=== PATIENT | male | born 1950 | race Caucasian/White ===

== ENCOUNTER 2017-06-22 21:14 | Emergency (ER) | payer OTHER, MEDICARE ==
[2017-06-22] VITALS (9 sets, daily range): BP systolic 90–151; BP diastolic 51–72
[~2017-06-22] VITALS: Ht 182.9 cm; Wt 81.6 kg
[~2017-06-22 21:14] MED LIST: AMOX1TAB63 PO; DILT120C PO; FURO20TA3 PO; GABA600T2 PO; LEVO500T51 PO; MORP30TA PO; PANT40TA5 PO; PARO40TA3 PO; POTA10CA PO; RIVA20TA PO
[2017-06-22] MEDS ORDERED: NS 1000ML 1,000 ML STA (21:19)
--- NOTE | 2017-06-22 21:24 | NUR ---
RT AT BEDSIDE EMILIANO DE LA CRUZ, ENROLLMENT NURSE DRAWING ABG ORDERED ANEL BERNABE, ENROLLMENT NURSE SETTING UP FOR BIPAP
--- NOTE | 2017-06-22 21:25 | ER.PDOC ---
General Chief Complaint: Requesting Medical Care Stated Complaint: DYSPNEA Time seen by MD: 09:15 Source: patient, EMS History of Present Illness Initial Comments Patient presents to the ED via EMS with worsening shortness of breath. Has been sick all week with sudden worsening this pm. Has had subjective fever. Denies CP. Has hx COPD. Unk Cardiac Hx Timing/Duration: 1 week Severity: severe Activities at Onset: none Prior Episodes/Possible Cause: chronic episodes Modifying Factors: improves with albuterol nebulizer Associated Symptoms: cough, fever, wheezing Prior symptoms/Treatment: Similar symptoms previous Allergies: Coded Allergies: No Known Allergies (Unverified , 08/04/15) Home Meds Reported Medications Digoxin (DIGOXIN) 250 Mcg Tablet, 1 TAB PO DAILY, #30 TAB 5 Refills 06/22/17 Pantoprazole Sodium (PANTOPRAZOLE SODIUM) 40 Mg Tablet.dr, 1 TAB PO DAILY, #30 TAB 3 Refills 03/08/16 Gabapentin (GABAPENTIN) 600 Mg Tablet, 1 TAB PO TID, #90 TAB 3 Refills 03/08/16 Potassium Chloride (POTASSIUM CHLORIDE) 10 Meq Capsule.er, 1 CAP PO BID, #90 CAP 1 Refill 03/08/16 Paroxetine Hcl (PAROXETINE HCL) 40 Mg Tablet, 1 TAB PO BID, #30 TAB 5 Refills 03/08/16 Diltiazem Hcl (DILTIAZEM 24HR ER) 120 Mg Cap.er.24h, 1 CAP PO BID, #90 CAP 1 Refill 03/08/16 Rivaroxaban (XARELTO) 20 Mg Tablet, 1 TAB PO DAILY, #30 TAB 11 Refills 03/08/16 Morphine Sulfate (MORPHINE SULFATE) 30 Mg Tablet, 30 MG PO BID, TABLET 08/04/15 Furosemide (FUROSEMIDE) 20 Mg Tablet, 40 MG PO DAILY, TABLET 08/04/15 Discontinued Scripts Amoxicillin/Potassium Clav (AUGMENTIN 875-125 TABLET) 1 Each Tablet, 1 TAB PO BID for ANTIBIOTIC, #14 TAB Prov:NITO SPARKS MD 03/12/16 Levofloxacin (LEVAQUIN) 500 Mg Tablet, 1 TAB PO DAILY for ANTIBIOTIC, #7 TAB Prov:NITO SPARKS MD 03/12/16 Vital Signs Vital Signs Date Time Temp Pulse Resp B/P (MAP) Pulse Ox O2 Delivery O2 Flow Rate FiO2 06/22/17 21:44 109 22 95 S/T 35 06/22/17 21:23 97.0 117/72 (87) Past Medical History Medical History: COPD Surgical History: back, stent Family History Significant Family History: no pertinent family hx Social History Smoking: greater than 1 pack/day Alcohol Use: rarely Reviewed Nursing Reviewed: Vital Signs, Abn. Noted, Nursing Assessment Review of Systems Constitutional: fever Respiratory: cough, shortness of breath, wheezing Cardiovascular: denies chest pain, denies edema, denies palpitations, denies syncope Gastrointestinal: denies abdominal pain, denies diarrhea, denies nausea, denies vomiting Musculoskeletal: no symptoms reported Skin: no symptoms reported Psychiatric/Neurological: no symptoms reported All Other Systems: Reviewed and Negative Physical Exam General Appearance: Severe Distress HEENT: PERRL/EOMI, Normal ENT Inspection, TMs Normal, Pharynx Normal Neck: Supple, Normal Inspection Respiratory: chest non-tender, decreased breath sounds, prolonged expirations, retractions, wheezing Cardiovascular: Normal Peripheral Pulses, Regular Rate, Rhythm, No Edema, No JVD Gastrointestinal: Normal Bowel Sounds, No Organomegaly, No Pulsatile Mass, Non Tender Extremities: Normal Range of Motion, Non-Tender, No Pedal Edema, No Calf Tenderness Neurologic/Psychiatric: quick service technician II-XII NML as Tested, No Motor/Sensory Deficits Skin: Normal Color, Diaphoresis, Pallor Lymphatic: No Adenopathy Results/Orders Results/Orders Laboratory Tests Test 06/22/17 21:19 06/22/17 21:23 06/22/17 21:36 White Blood Count 13.2 10^3/uL (4.5-11.0) Red Blood Count 4.49 10^6/uL (4.50-5.90) Hemoglobin 12.7 g/dL (13.9-16.3) Hematocrit 39.0 % (37.0-53.0) Mean Corpuscular Volume 86.9 fL (78-100) Mean Corpuscular Hemoglobin 28.3 pg (26-34) Mean Corpuscular Hemoglobin Concent 32.6 g/dL (33-37) Red Cell Distribution Width 14.5 % (11.5-14.5) Platelet Count 254 10^3/uL (150-400) Mean Platelet Volume 10.7 fL (7.8-11.0) Neutrophils (%) (Auto) 91.6 % (41.0-85.0) Lymphocytes (%) (Auto) 3.0 % (24.0-44.0) Monocytes (%) (Auto) 4.9 % (5.0-12.0) Neutrophils # (Auto) 12.0 10^3/uL (1.8-7.7) Lymphocytes # (Auto) 0.4 10^3/uL (1.0-4.8) Monocytes # (Auto) 0.6 10^3/uL (0.3-0.8) Absolute Immature Granulocyte (auto 0.04 10^3 u/L (0-2) Eosinophils % 0.0 % (0.0-5.0) Basophils % 0.2 % (0.0-0.2) Basophils # 0.0 10^3/uL (0.0-0.1) Eosinophil Count 0.0 10^3/uL (0.0-0.2) Prothrombin Time 19.2 SEC (9.8-11.9) Prothrombin Time INR (Non-Therap) 2.0 Activated Partial Thromboplast Time 47.0 SEC (24.67-30.72) Sodium Level 132 mmol/L (132-145) Potassium Level 3.6 mmol/L (3.6-5.2) Chloride Level 93.0 mmol/L (96-109) Carbon Dioxide Level 28.1 mmol/L (20.0-32) Anion Gap 14.5 Blood Urea Nitrogen 19 mg/dL (7-18) Creatinine 0.95 mg/dL (0.59-1.40) Estimated GFR () 95.1 (>/=60) BUN/Creatinine Ratio 20.0 Glucose Level 151 mg/dL (70-110) Calcium Level 8.8 mg/dL (8.4-10.5) Total Bilirubin 0.8 mg/dL (0.2-1.0) Aspartate Amino Transf (AST/SGOT) 34 U/L (0-35) Alanine Aminotransferase (ALT/SGPT) 25 U/L (12-78) Alkaline Phosphatase 82 U/L (50-136) Total Creatine Kinase 368 U/L (39-308) Creatine Kinase MB 3.5 ng/mL (0.5-3.6) Troponin I 0.12 ng/mL (0.00-0.05) Pro-B-Type Natriuretic Peptide 3633 pg/mL (0-125) Total Protein 7.0 g/dL (6.4-8.2) Albumin 3.0 g/dL (3.4-5.0) Globulin 4.0 Percent Immature Gran (Cell Imm) 0.30 % (0.00-0.50) Blood Gas Sample Site RT RADIAL ARTERY Blood Gas pH 7.384 (7.350-7.450) Blood Gas PCO2 42.2 mmHg (35.0-45.0) Blood Gas PO2 94.5 mmHg (75.0-100.0) Blood Gas HCO3 24.6 mmol/L (22.0-26.0) Blood Gas Base Excess -0.5 mmol/L (-2.0-2.0) Rivas Test POSITIVE Arterial Blood Oxygen Saturation 96.9 % (95-) Deoxyhemoglobin 3.0 % (0.2-0.6) Carboxyhemoglobin 1.4 % (0.5-1.5) Methemoglobin 0.3 % (0.2-0.6) Total Hemoglobin 13.5 % (13.5-17.5) Total Oxygen Concentration 18.2 % (13.5-17.5) Lactic Acid (Blood Gas) 2.4 MMOL/L (0.5-1.0) Oxygen Delivery Method (LAB) MASK FiO2 50 % (20-101) Bicarbonate 25.9 mmol/L (23-27) Differential Total Cells Counted 100 #CELLS Segmented Neutrophils 88 % (31-76) Band Neutrophils 9 % (2-6) Monocytes 3 % (3-9) Platelet Estimate ADEQUATE Platelet Morphology NORMAL Blood Morphology Comment NORMAL MORPHOLOGY Administered Medications Medications (Trade) Dose Ordered Sig/Josephine Route PRN Reason Start Time Stop Time Status Last Admin Dose Admin Sodium Chloride 1,000 ml @ 0 mls/hr Q0M STAT IV 06/22/17 21:19 06/23/17 00:42 DC 06/22/17 21:26 Methylprednisolone Sodium Succinate (Solu-Medrol) 125 mg STAT STAT IV 06/22/17 21:39 06/22/17 21:41 DC 06/22/17 22:24 Ceftriaxone Sodium 1000 mg/ Sodium Chloride 100 ml @ 100 mls/hr OT STAT IV 06/22/17 22:22 06/22/17 23:21 DC 06/22/17 22:43 Progress Progress Patient gradually improved on bipap with decreased distress and improved neurologic state. CXR consistent with early pneumonia. No obvious signs of CHF. Elevated Trop and BNP. Consult[facility]PCP: [facility] . Consult/PCP: Talked with ED doc at will except Departure Time of Disposition: 23:40 Disposition: 05 DISCH/XFER OTHER (Transferred to ) Impression: Primary Impression: Pneumonia Additional Impressions: Acute respiratory distress in Elevation of cardiac enzymes Condition: Improved Referrals: PCP,UNKNOWN (PCP) PRIMARY CARE PROVIDER Duration or Time Spent with Pa: 120 Critical Care Note Total Time (mins): 120 Comments 67 yo WM with known COPD presents with severe respiratory distress and hx concerning for Pneumonia. Patient responded to BiPap and improved in ED Patient noted to have elevated cardiac enzymes without ST seg elevation and no hx of chest pain.Patient transferred to for further evaluation. Pt unable to tolerate bipap in helicopter so prophylactically intubated by EMS just at departure. CC time exclusive of other activities Problem Qualifiers Primary Impression: Pneumonia Pneumonia type: due to unspecified organism Laterality: left Lung location : lower lobe of lung Qualified Codes: J18.1 - Lobar pneumonia, unspecified organism WILFRID FWOLER MD Jun 22, 2017 21:25
--- NOTE | 2017-06-22 21:26 | NUR ---
BIPAP SETTINGS: 10/5 40% LUNG SOUNDS TIGHT WITH WHEEZING HEARD THROUGHOUT DURING AUSCULTATION, BARREL CHEST SHAPE NOTED, SUBCOSTAL RETRACTIONS VISUALIZED. HR 118 SINUS TACH BP 117/72 RR 24 OXYGEN SATURATION 98%
[2017-06-22 21:30] LABS: BASOPHIL % 0.2 % (0.0-0.2); HEMOGLOBIN 12.7 g/dL (13.9-16.3); LYMPHOCYTES # 0.4 10^3/uL (1.0-4.8); MEAN CELL HGB 28.3 pg (26-34); MEAN CELL HGB CONCENTRATION 32.6 g/dL (33-37); MEAN CORP VOLUME 86.9 fL (78-100); MEAN PLATELET VOLUME 10.7 fL (7.8-11.0); MONOCYTES # 0.6 10^3/uL (0.3-0.8); MONOCYTES % 4.9 % (5.0-12.0); NEUTROPHILS % 91.6 % (41.0-85.0); RED CELL DISTRIBUTION WIDTH 14.5 % (11.5-14.5); WHITE BLOOD CELL 13.2 10^3/uL (4.5-11.0)
[2017-06-22 21:32] LABS: ABG PCO2 42.2 mmHg (35.0-45.0); ABG PH 7.384 (7.350-7.450); BE(B) -0.5 mmol/L (-2.0-2.0); HCO3act 24.6 mmol/L (22.0-26.0); pO2 94.5 mmHg (75.0-100.0)
[2017-06-22] MEDS ORDERED: DIGO250T PO (21:34)
--- NOTE | 2017-06-22 21:34 | NUR ---
BIPAP FIO2 DECREAED TO 35% HR AFIB 107-122 BP 151/68 RR 22-24 OXYGEN SATURATION 97% ON BIPAP
--- NOTE | 2017-06-22 21:36 | NUR ---
LOULOU SAHU, RAD AT BEDSIDE FOR 1V CHEST XRAY
--- NOTE | 2017-06-22 21:37 | NUR ---
EKG EMILIANO, INTERNATIONAL LOGISTICS MANAGER AT BEDSIDE FOR EKG
[2017-06-22] MEDS ORDERED: SOLU-MEDROL IV STA (21:39)
--- NOTE | 2017-06-22 21:41 | PCM.EKG ---
[facility] Test Date: 2017-06-22 Test Time: 21:42:04 Pat Name: TRISH PHAM [id number] Room: Gender: M [employer]: KAUR : 1950 Requested By: LOUIE FOWLER Order Number: [id number] Reading MD: Louie Fowler Measurements Intervals [place] Rate: 111 P: IN: QRS: -63 QRSD: 108 T: 113 QT: 346 QTc: 470 Interpretive Statements Undetermined rhythm Left anterior fascicular block ST & T wave abnormality, consider lateral ischemia Abnormal ECG No previous ECG available for comparison Electronically Signed On 06-23-2017 1:11:01 CDT by Louie Fowler Please click the below link to view image of tracing.
--- NOTE | 2017-06-22 21:46 | DIREP ---
PROCEDURE:CHEST 1 VIEW COMPARISON:[facility], CR, XRAY CHEST 2 VWS, 03/10/2016, 10:06 AM. INDICATIONS:dyspnea FINDINGS: LUNGS/PLEURA:Increasing airspace opacity in the right lung base from prior exam compatible with pneumonic infiltrate. Redemonstrated bilateral interstitial coarsening VASCULATURE:Normal. Unremarkable pulmonary vasculature. CARDIAC:Normal. No cardiac silhouette abnormality or cardiomegaly. MEDIASTINUM:Normal. No visible mass or adenopathy. 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 OTHER:Negative. CONCLUSION:Chronic lung changes with left basilar airspace disease compatible with pneumonia. Dictated by: Osbaldo Roche DO on 06/22/2017 at 09:43 PM
[2017-06-22 22:13] LABS: CALCIUM 8.8 mg/dL (8.4-10.5); CARBON DIOXIDE 28.1 mmol/L (20.0-32)
[2017-06-22] MEDS ORDERED: NS 1000ML 1,000 ML ONE (22:21)
[2017-06-22] MEDS ORDERED: ROCEPHIN 1,000 MG in NS 100ML 100 ML IV STA (22:22)
[2017-06-22] MEDS ORDERED: SOLU-MEDROL ONE (22:22)
[2017-06-22 22:30] LABS: BAND NEUTROPHILS 9 % (2-6); MONOCYTE 3 % (3-9); SEGMENTED NEUTROPHILS 88 % (31-76)
[2017-06-22] MEDS ORDERED: ROCEPHIN ONE (22:32)
[2017-06-22] MEDS ORDERED: NS 100ML 100 ML IV ONE (22:32)
--- NOTE | 2017-06-22 22:45 | NUR ---
[facility] DR F[facility] ON THE PHONE WITH [facility]AGA [facility]CL[facility] AT THIS TIME DUE TO NO CARDIOLOGY COVERAGE SUGGESTED [facility] OR [facility]
--- NOTE | 2017-06-22 23:17 | NUR ---
[facility] EDP ON PHONE WITH LISETH, DISPATCH FOR POSSIBLE TRANSFER
--- NOTE | 2017-06-22 23:17 | NUR ---
DR TANJA AGRAWAL AT [facility] ED ACCEPTED PATIENT TO ER
--- NOTE | 2017-06-22 23:19 | NUR ---
TRANSFER DR FOWLER AT BEDSIDE TO DISCUSS TRANSFER WITH PATIENT AND FAMILY PATIENT VOICED UNDERSTANDING REGARDING TRANSFER [facility].
--- NOTE | 2017-06-22 23:24 | NUR ---
[facility] SPOKE WITH KIMO, JUNIOR UNDERWRITER, STATES UNABLE TO TAKE A PATIENT ON BI-PAP DUE TO NOT HAVING THE RIGHT EQUIPMENT. EDP NOTIFIED AND STATES TO CALL FOR [facility].
--- NOTE | 2017-06-22 23:25 | NUR ---
MADHURI SPOKE WITH [facility] FOR FLIGHT, STATES SHE WILL CHECK WITH CREW AND CALL US BACK
--- NOTE | 2017-06-22 23:41 | NUR ---
LIFESTAR AT BEDSIDE REPORT GIVEN TO DEWAYNE Addendum: 06/23/17 at 0013 by JUNE Amendment sky in ED - 06/23/17 at 0019 by JUNE CARE TRANSFERRED TO [facility]
--- NOTE | 2017-06-23 00:10 | NUR ---
STATUS PATIENT IS RESTLESS, ANXIOUS UNABLE TO LIE FLAT. [facility] STAFF MADE DECISION FOR INTUBATION PRIOR TO LEAVING [facility] ER.
--- NOTE | 2017-06-23 00:25 | NUR ---
[facility] OFF UNIT WITH PATIENT
--- NOTE | 2017-06-23 00:36 | NUR ---
REPORT GIVEN TO CASPER RN
[2017-06-23 00:41] VITALS: BP 90/51
== END 2017-06-23 00:25 | disposition short-term general hospital (02) ==
LOC: EDBD 21:14 → ER 21:14
DX: J18.1 Lobar pneumonia, unspecified organism (principal); R74.8 Abnormal levels of other serum enzymes; J44.9 Chronic obstructive pulmonary disease, unspecified; F17.210 Nicotine dependence, cigarettes, uncomplicated
CPT/HCPCS: 36415; 36600; 71045; 80053; 82550; 82553; 82803; 83880; 84484; 85025; 85610; 85730; 87040 ×2; 93005; 94660; 96361; 96365; 96375; 99291; 99292; J0696; J2930; J7030; J7050